=== PATIENT | male | born 1965 | race Caucasian/White ===

== ENCOUNTER 2018-07-25 13:06 | Outpatient (CLI) | payer OTHER ==
--- NOTE | 2018-07-25 15:39 | Diagnostic Imaging Report ---
GUEVARA FULLER [facility] [address] [facility] [address] [address] Report Submission Date: Jul 25, 2018 2:19:23 PM CARPENTER Patient Study Name: RAYMUNDO ACUNA Date: Jul 25, 2018 1:06:39 PM CARPENTER Modality Type: DX Gender: M Description: LOWER EXTREMITY : 61 Institution: [facility] Physician: GUEVARA FULLER Examination: Plain film right knee History: Pt heard a pop yesterday (Hx) Findings: 2 views of the knee demonstrates normal cortical margins. No fracture. No dislocation. No joint effusion. No soft tissue irregularity. Impression: No acute osseous abnormality Electronically signed on Jul 25, 2018 2:19:23 PM CARPENTER by: Lyndon YATES
== END 2018-07-25 13:15 ==
LOC: RAD 13:06
PROVIDERS: ATTEND Nurse Practitioner Family
DX: S89.91XA Unspecified injury of right lower leg, initial encounter (principal)
CPT/HCPCS: 73562